=== PATIENT | female | born 1940 | race Caucasian/White ===

== ENCOUNTER → 2017-06-14 | Outpatient (CLI) | payer OTHER ==
[~2017-06-14] MED LIST: FLUMAZENIL 0.5 MG/5 ML MDV IVP ONE; MIDAZOLAM 2 MG/2 ML VIAL ONE; NALOXONE HCL 0.4 MG/ML INJ ONE; fentaNYL 100 MCG/2 ML INJ ONE
== END ==
LOC: FIMAGING 07:53
PROVIDERS: ATTEND Family Medicine
DX: M54.5 Low back pain (principal); M25.552 Pain in left hip; I10 Essential (primary) hypertension; Z85.3 Personal history of malignant neoplasm of breast; Z53.20 Procedure and treatment not carried out because of patient's decision for unspecified reasons
CPT/HCPCS: J2250; J3010; J2310

== ENCOUNTER 2017-07-18 13:27 | Day surgery (SDC) | payer OTHER ==
[2017-07-18] MEDS ORDERED: PROPOFOL/EMULSION 500 MG/50 ML BOTTLE IV ONE (15:34)
[2017-07-18] MEDS ORDERED: PROPOFOL 200 MG/20 ML VIAL ONE (15:34)
[2017-07-18] MEDS ORDERED: fentaNYL 100 MCG/2 ML INJ ONE (15:56)
--- NOTE | 2017-07-18 16:08 | PDANEPAE ---
ANE History of Present Illness Patient presents for lumbar spine MRI ANE Past Medical History - Cardiovascular History Hx Hypertension: Yes Hx Arrhythmias: No Hx Chest Pain: No Hx Coronary Artery / Peripheral Vascular Disease: No Hx CHF / Valvular Disease: No Hx Palpitations: No - Pulmonary History Hx COPD: No Hx Asthma/Reactive Airway Disease: No Hx Recent Upper Respiratory Infection: No Hx Oxygen in Use at Home: No Hx Sleep Apnea: No - Neurologic History Hx Cerebrovascular Accident: No Hx Seizures: No Hx Dementia: No - Endocrine History Hx Diabetes: No Obesity: yes Endocrine History Comment: Hypothyroid; - Renal History Hx Renal Disorders: No Renal History Comment: kidney stones - Liver History Hx Hepatic Disorders: No - Neurological & Psychiatric Hx Hx Neurological and Psychiatric Disorders: No - Cancer History Hx Cancer: Yes Cancer History Comment: BREAST CA; BASAL CELL - Congenital Disorder History Hx Congenital Disorders: No - GI History Hx Gastrointestinal Disorders: Yes Gastrointestinal History Comment: GERD - Other Health History Other Health History: JAW BONE GRAFT; MENEARS DISEASE; NEW ANKLE AND FOOT SWELLING; - Chronic Pain History Chronic Pain: Yes (LEFT LEG/HIP; LOWER BACK) - Surgical History Prior Surgeries: BILAT MASTECTOMY;. [place], APPY,. B TUBAL LIGATION,HERNIA;. LAMINECTOMY, BILAT KNEE REPLACEMENTS, MOHS BASAL CELL REMOVAL; RIGHT TRIGGER FINGER RELEASE X2; RIGHTFIRST DORSAL COMPARTMENT RELEASE; TOOTH EXTRACTION W/ TOOTH IMPLANT (in progress) W/ BONE GRAFT; ANE Review of Systems Review of Systems: - Exercise capacity METS (RN): 2 METS ANE Patient History - Allergies Allergies/Adverse Reactions: adhesive Allergy (Mild, Verified 05/20/17 14:12) SKIN PEELING acetaminophen [From Percocet] Allergy (Verified 05/20/17 14:12) aspirin [From Percodan] Allergy (Verified 05/20/17 14:12) oxycodone HCl [From Percocet] Allergy (Verified 05/20/17 14:12) oxycodone terephthalate [From Percodan] Allergy (Verified 05/20/17 14:12) ENVIRONMENTAL Allergy (Mild, Uncoded 05/20/17 14:12) ALLERGIC RHINITIS - Home Medications Home medications: home medication list seen and reviewed Home Medications: Acetaminophen [Tylenol Tablet] 325 mg PO Q6 PRN 09/17/13 [Last Taken 09/17/13 21 :00] Cholecalciferol Vit D3 [Vitamin D3 2000 units (OTC)] 2,000 units PO DAILY [Last Taken 09/17/13 21:00] Fluticasone Nasal [Flonase Nasal [place] (RX)] 1 sprays [place] DAILY 09/17/13 [ Last Taken 09/17/13 20:00] Levothyroxine [Synthroid 112 mcg (RX)] 0.1 mcg PO DAILY06 09/17/13 [Last Taken 09/18/13 07:00] Loratadine [Claritin 10 mg] 10 mg PO DAILY 09/17/13 [Last Taken 09/17/13 15:00] Multivitamins [Tab-A-Don] 1 each PO DAILY 09/17/13 [Last Taken 09/17/13 14:00] Simvastatin [Zocor 10 mg (RX)] 10 mg PO DAILY18 09/17/13 [Last Taken 09/17/13 19 :00] Verapamil ER [Calan SR/ER 240MG (RX)] 240 mg PO DAILY8 09/17/13 [Last Taken 07:00] Anastrozole 1 mg PO 05/20/17 [Last Taken Unknown] MOTRIN 600 mg PO 05/20/17 [Last Taken Unknown] traMADol 50 mg PO 05/20/17 [Last Taken Unknown] KETOCONAZOLE 07/13/17 [Last Taken Unknown] POTASSIUM CL (KCl) 10 meq PO DAILY 07/13/17 [Last Taken Unknown] - NPO status NPO Status: no food or drink >8 hours - Anes Hx Anes Hx: no prior problems - Smoking Hx Smoking Status: Never smoked - Family Anes Hx Family Hx Anesthesia Complications: one sister has complicaitons (unknown what they are) ANE Labs/Vital Signs - Vital Signs Height: 152.4 cm Weight: 90.718 kg ANE Physical Exam - Airway Neck exam: decreased ROM Mallampati Score: Class 4 Mouth exam: small mouth opening - Pulmonary Pulmonary: no respiratory distress - Cardiovascular Cardiovascular: regular rate and rhythym - ASA Status ASA Status: III ANE Anesthesia Plan Anesthesia Plan: GA w LMA (RBA discussed including remote risk of neurologic damage due to need for supine positioning and patients inability to lay supine without pain. )
[2017-07-18] MEDS ORDERED: LABETALOL HCL 5 MG/ML 20 ML MDV IVP PRN (16:25)
[2017-07-18] MEDS ORDERED: LR 500 ML IV PRN (16:25)
[2017-07-18] MEDS ORDERED: fentaNYL 100 MCG/2 ML INJ IVP PRN (16:25)
[2017-07-18] MEDS ORDERED: ONDANSETRON 4 MG/2 ML VIAL IVP PRN (16:25)
[2017-07-18] MEDS ORDERED: NALOXONE HCL 0.4 MG/ML INJ IVP PRN (16:25)
[2017-07-18 17:06] VITALS: TEMP 98.1
[2017-07-18] MEDS ORDERED: ATROPINE SULFATE 0.4 MG/ML VIAL ONE (18:01)
[2017-07-18] MEDS ORDERED: LIDOCAINE 2% 2 ML INJ ONE (18:02)
[2017-07-18] MEDS ORDERED: SODIUM CL 0.9% 20 ML VIAL ONE (18:02)
[2017-07-18 18:03] VITALS: O2SAT 93
[2017-07-18 18:04] VITALS: BP 131/64; PULSE 78; RESP 16
== END 2017-07-18 18:25 | disposition home or self-care (01) ==
LOC: FSGY 13:27
PROVIDERS: ATTEND Family Medicine
PROC: BR39ZZZ Magnetic Resonance Imaging (MRI) of Lumbar Spine (ICD-10-PCS; principal; 2017-07-18 15:00)
DX: M51.26 Other intervertebral disc displacement, lumbar region (principal); M43.17 Spondylolisthesis, lumbosacral region; M48.06 Spinal stenosis, lumbar region; M48.07 Spinal stenosis, lumbosacral region; M46.96 Unspecified inflammatory spondylopathy, lumbar region
CPT/HCPCS: J0461; J2704; J3010

== ENCOUNTER → 2018-07-06 | Outpatient (CLI) | payer OTHER | LOC: FIMAGING 09:18 | PROVIDERS: ATTEND Family Medicine | DX: Z12.31 Encounter for screening mammogram for malignant neoplasm of breast (principal); Z78.0 Asymptomatic menopausal state; M81.0 Age-related osteoporosis without current pathological fracture ==

== ENCOUNTER → 2018-09-29 | Outpatient (CLI) | payer OTHER | LOC: FIMAGING 08:45 | PROVIDERS: ATTEND Internal Medicine Hematology & Oncology | DX: E21.3 Hyperparathyroidism, unspecified (principal); C50.211 Malignant neoplasm of upper-inner quadrant of right female breast; Z17.0 Estrogen receptor positive status [ER+] ==